=== PATIENT | female | born 1950 | race Caucasian/White ===

== ENCOUNTER 2024-09-24 08:07 | Outpatient (CLI) | payer MEDICARE, MEDICAID ==
[~2024-09-24] VITALS: Ht 149.9 cm; Wt 53.5 kg
[~2024-09-24 08:07] MED LIST: IODIXANOL 320 MG/ML INFUS..BTL 100ML IV ONE
[2024-09-24 08:52] LABS: BASOPHILS # (AUTO) 0.1 X10'3 (0-0.2); BASOPHILS % (AUTO) 0.6 % (0-1); EOSINOPHILS # (AUTO) 0.2 X10'3 (0-0.9); EOSINOPHILS % (AUTO) 1.5 % (0-6); HEMATOCRIT 39.9 % (35.0-45.0); HEMOGLOBIN 13.7 g/dl (12.0-16.0); LYMPHOCYTES # (AUTO) 2.8 X10'3 (1.1-4.8); LYMPHOCYTES % (AUTO) 26.9 % (21-51); MEAN CORPUSCULAR HEMOGLOBIN 32.2 PG (27.0-31.0); MEAN CORPUSCULAR HGB CONC 34.4 g/dL (33.0-36.5); MEAN CORPUSCULAR VOLUME 93.6 FL (78-98); MEAN PLATELET VOLUME 7.5 FL (7.4-10.4); MONOCYTES # (AUTO) 0.7 X10'3 (0-0.9); MONOCYTES % (AUTO) 6.9 % (2-12); NEUTROPHILS # (AUTO) 6.7 X10'3 (1.8-7.7); NEUTROPHILS % (AUTO) 64.1 % (42-75); PLATELET COUNT 251 X10'3 (140-440); RED BLOOD COUNT 4.27 X10'6 (4.20-5.60); RED CELL DISTRIBUTION WIDTH 13.9 % (11.5-14.5); WHITE BLOOD COUNT 10.4 X10'3 (4.5-11.0)
[2024-09-24 09:10] LABS: APTT 26 SECONDS (22-32); PROTHROMBIN TIME 10.1 SECONDS (9.0-12.0)
[2024-09-24 09:12] LABS: ALANINE AMINOTRANSFERASE 18 U/L (12-78); ALBUMIN 3.6 G/DL (3.4-5.0); ALKALINE PHOSPHATASE 74 IU/L (46-116); ANION GAP 8 (8-16); ASPARTATE AMINO TRANSFERASE 17 U/L (10-37); BILIRUBIN,TOTAL 0.4 MG/DL (0.1-1.0); BLOOD UREA NITROGEN 18 MG/DL (7-18); BUN/CREATININE RATIO 19.8 (10.0-20.0); CHLORIDE 107 MMOL/L (99-107); CREATININE 0.91 MG/DL (0.40-0.90); GLUCOSE 110 MG/DL (70-104); POTASSIUM 3.8 MMOL/L (3.5-5.1); SODIUM 141 MMOL/L (135-145); TOTAL CARBON DIOXIDE 26.5 MMOL/L (24-32); TOTAL PROTEIN 7.3 G/DL (6.4-8.2); eGFR 60 ML/MIN
[2024-09-24 09:18] LABS: PRO BRAIN NATRIURETIC PEPTIDE 331 PG/ML (0-450)
[2024-09-24 12:59] LABS: ABG BASE EXCESS -0.4 mmol/L (-2.0-3.0); ABG OXYGEN SATURATION 96.5 % (94.0-98.0); ABG PH (T) 7.448 (7.350-7.450); ABG PO2 (T) 82.5 mmHg (83.0-108.0); ALLEN'S TEST POSITIVE; FCOHb 3.4 % (0.5-1.5); FHHb 3.4 % (0.0-5.0); FMetHb 0.3 % (0.0-1.5); FO2Hb 92.9 % (94.0-98.0); MODE ROOM AIR; TOTAL HEMOGLOBIN 13.8 G/dl (12.0-16.0)
[2024-09-24] MEDS: albuterol 2.5 MG/3 ML nebule NEB ONE (13:28)
[2024-09-24 13:31] VITALS: PULSE 58; RESP 16; O2SAT 96
[2024-09-24 13:43] VITALS: PULSE 50; RESP 16
== END 2024-09-24 23:59 | disposition home or self-care (01) ==
LOC: RAD 08:07
PROVIDERS: ATTEND Internal Medicine Cardiovascular Disease
DX: I08.0 Rheumatic disorders of both mitral and aortic valves (principal); R06.02 Shortness of breath; I65.29 Occlusion and stenosis of unspecified carotid artery; I10 Essential (primary) hypertension; I37.1 Nonrheumatic pulmonary valve insufficiency; J44.89 Other specified chronic obstructive pulmonary disease; I25.10 Atherosclerotic heart disease of native coronary artery without angina pectoris; K80.20 Calculus of gallbladder without cholecystitis without obstruction; M47.816 Spondylosis without myelopathy or radiculopathy, lumbar region; M43.16 Spondylolisthesis, lumbar region; M43.8X6 Other specified deforming dorsopathies, lumbar region; I65.23 Occlusion and stenosis of bilateral carotid arteries
CPT/HCPCS: 36415; 36600; 71046; 71275; 74174; 75572; 80053; 82803; 83880; 85018; 85025; 85610; 85730; 93880; 94060; 94727; 94729; 94760; C8924; Q9967; 93308

== ENCOUNTER 2024-12-24 06:55 | Day surgery (SDC) | payer MEDICARE, MEDICAID ==
[2024-12-22 10:53] LABS: BASOPHILS # (AUTO) 0.1 X10'3 (0-0.2); BASOPHILS % (AUTO) 0.8 % (0-1); EOSINOPHILS # (AUTO) 0.2 X10'3 (0-0.9); LYMPHOCYTES # (AUTO) 2.7 X10'3 (1.1-4.8); LYMPHOCYTES % (AUTO) 33.2 % (21-51); MEAN CORPUSCULAR HGB CONC 33.9 g/dL (33.0-36.5); MEAN CORPUSCULAR VOLUME 91.4 FL (78-98); MEAN PLATELET VOLUME 6.8 FL (7.4-10.4); MONOCYTES # (AUTO) 0.7 X10'3 (0-0.9); MONOCYTES % (AUTO) 8.6 % (2-12); NEUTROPHILS # (AUTO) 4.5 X10'3 (1.8-7.7); NEUTROPHILS % (AUTO) 54.4 % (42-75); PRE OP HEMATOCRIT 39.8 % (35.0-45.0); PRE OP HEMOGLOBIN 13.5 g/dL (12.0-16.0); PRE OP PLATELET COUNT 244 X10'3 (140-440); PRE OP WHITE BLOOD COUNT 8.2 10'3 (4.8-10.8); RED BLOOD COUNT 4.35 X10'6 (4.20-5.60); RED CELL DISTRIBUTION WIDTH 14.2 % (11.5-14.5)
[2024-12-22 11:05] LABS: PRE OP PROTIME 9.5 SECONDS (9.0-12.0)
[2024-12-22 11:07] LABS: ALBUMIN 3.5 G/DL (3.4-5.0); ALBUMIN/GLOBULIN RATIO 0.9 (1.1-1.5); ALKALINE PHOSPHATASE 87 IU/L (46-116); BLOOD UREA NITROGEN 16 MG/DL (7-18); BUN/CREATININE RATIO 19.5 (10.0-20.0); CALCIUM 9.4 MG/DL (8.5-10.1); CHLORIDE 106 MMOL/L (99-107); CREATININE 0.82 MG/DL (0.40-0.90); PRE OP ALT 18 U/L (30-65); PRE OP ANION GAP 7 (8-16); PRE OP AST 17 U/L (10-37); PRE OP BILIRUB, TOTAL 0.3 MG/DL (0.0-1.0); PRE OP GLUCOSE 107 MG/DL (70-104); PRE OP POTASSIUM 3.9 MMOL/L (3.4-5.1); PRE OP SODIUM 140 MMOL/L (135-145); TOTAL CARBON DIOXIDE 27.5 MMOL/L (24-32); TOTAL PROTEIN 7.5 G/DL (6.4-8.2); eGFR 68 ML/MIN
[2024-12-22 11:16] LABS: PRE OP INR 0.9 INR
[2024-12-24] VITALS (13 sets, daily range): BP systolic 126–168; BP diastolic 44–61; PULSE 52–62; RESP 11–17; TEMP 97.7; O2SAT 91–99
[~2024-12-24] VITALS: Ht 149.9 cm; Wt 152.3 kg
[~2024-12-24 06:55] MED LIST changes: +AMLO10TA13 PO; +ASPI81TA53 PO; +CALC600T14 PO; +CHOL100046 PO; +CITA20TA17 PO; +FLUT1BLS4 INH; -IODIXANOL 320 MG/ML INFUS..BTL 100ML IV ONE; +MAGN400C PO; +MULT-1074 PO; +ROSU20TA98 PO; +UBIQ100C2 PO
[2024-12-24] MEDS ORDERED: heparin 1,000unit/ml 10ml vial 10 ML ONE (07:35)
[2024-12-24] MEDS ORDERED: midazolam 1 mg/ML 2ml injection ONE ×2 (07:35→08:10)
[2024-12-24] MEDS ORDERED: iohexol 350MG/ML 100ml bottle IV ONE (07:35)
[2024-12-24] MEDS ORDERED: LIDOcaine 1% 30ml preserv. free vial ONE (07:35)
[2024-12-24] MEDS ORDERED: fentaNYL/PF 50MCG/1 ML 2ML syringe ONE ×2 (07:35→08:10)
[2024-12-24] MEDS: VANCOMYCIN/H2O 1.5g/300mL PB 300 ML IV ONE (07:37)
[2024-12-24] MEDS ORDERED: ASPI-1265 PO (07:38)
[2024-12-24] MEDS: aspirin 325mg tablet PO ONE (07:38)
[2024-12-24] MEDS ORDERED: phenylephrine 10mg/ml inj. ONE (07:39)
[2024-12-24] MEDS ORDERED: atropine 0.1mg/ml 10ml syringe ONE (08:25)
[2024-12-24] MEDS ORDERED: protamine sulfate 10mg/ml inj. ONE (08:43)
[2024-12-24] MEDS ORDERED: HYDROcodone/acetaminophen 5mg/325mg tablet PO PRN (09:45)
[2024-12-24] MEDS ORDERED: HYDROcodone/acetaminophen 10/325mg tab PO PRN (09:45)
[2024-12-24] MEDS ORDERED: citalopram 20mg tablet PO SCH (21:00)
[2024-12-24] MEDS ORDERED: magnesium oxide 400mg tablet PO SCH (21:00)
[2024-12-25] MEDS ORDERED: ondansetron/PF 4mg/2ml inj IV PRN (05:30)
[2024-12-25] MEDS ORDERED: aspirin 81mg tab.chew PO SCH (08:00)
[2024-12-25] MEDS ORDERED: atorvastatin 20mg tablet PO SCH (08:00)
[2024-12-25] MEDS ORDERED: cholecalciferol (vitamin D3) 1,000 unit (25mcg) tablet PO SCH (08:00)
[2024-12-25] MEDS ORDERED: multivitamins, therapeutics tablet PO SCH (08:00)
[2024-12-25] MEDS ORDERED: non-formulary drug (Calcium Carbonate (Calcium) 1 TAB) PO SCH (08:00)
[2024-12-25] MEDS ORDERED: Fluticasone/Umeclidin/Vilanter (Trelegy Ellipta 100-62.5-25) IH SCH (08:00)
[2024-12-25] MEDS ORDERED: amLODIPine 5mg tablet PO SCH (08:00)
[2024-12-25] MEDS ORDERED: UBIQUINOL PO SCH (08:00)
== END 2024-12-24 15:10 | disposition home or self-care (01) ==
LOC: SSTAY O 06:55
PROVIDERS: ATTEND Student in an Organized Health Care Education/Training Program
DX: I35.0 Nonrheumatic aortic (valve) stenosis (principal); I10 Essential (primary) hypertension; E78.5 Hyperlipidemia, unspecified; E11.9 Type 2 diabetes mellitus without complications; J44.9 Chronic obstructive pulmonary disease, unspecified; Z79.01 Long term (current) use of anticoagulants; Z79.899 Other long term (current) drug therapy; Z98.890 Other specified postprocedural states; Z88.0 Allergy status to penicillin; Z88.8 Allergy status to other drugs, medicaments and biological substances; Z88.6 Allergy status to analgesic agent
CPT/HCPCS: 36415; 71046; 80053; 85025; 85610; 85730; 92986; 93005; 93308; 99152; 99153; A4615; A6258; C1756; C1760; C1769; C1894; J1644; J2003; J2250; J2371; J2720; J3010; J3372; J7030; Q9967; Z7610; 76937; 86920; 93314; 93325; J0461